=== PATIENT | female | born 1950 | race Caucasian/White ===

== ENCOUNTER 2025-06-07 06:38 | Inpatient (IN) | payer MEDICARE, OTHER ==
[~2025-06-07] VITALS: Ht 152.4 cm; Wt 93.6 kg
[2025-06-07] MEDS ORDERED: LIDOCAINE 2%-EPI 1:100,000 30 ML VIAL ONE (06:54)
[2025-06-07] MEDS ORDERED: GENTAMICIN 80 MG/2 ML VIAL ONE (06:54)
[2025-06-07] MEDS ORDERED: POLYMYXIN B SULFATE 500,000 UNITS ONE (06:54)
[2025-06-07] MEDS ORDERED: ANESTHESIA TRAY IN PYXIS 1 EA TRAY MC ONE (06:54)
[2025-06-07] MEDS ORDERED: dexaMETHasone SOD PHOSPHATE 1 ML ONE (06:55)
[2025-06-07] MEDS ORDERED: CEFAZOLIN 1 GM ONE (06:55)
[2025-06-07] MEDS ORDERED: VANCOMYCIN 1 GM VIAL ONE (06:55)
[2025-06-07] MEDS ORDERED: KETAMINE HCL (500MG/10ML) 50 MG/ML VIAL ONE (07:17)
[2025-06-07] MEDS ORDERED: FENTANYL PF 100MCG/2ML AMPUL ONE (07:17)
[2025-06-07] MEDS ORDERED: MIDAZOLAM HCL 2 MG/2ML VIAL ONE (07:17)
[2025-06-07] MEDS ORDERED: OXYMETAZOLINE HCL NASAL SPRAY 30 ML BOTTLE NS ONE (07:18)
[2025-06-07] MEDS ORDERED: ROCURONIUM BROMIDE 50 MG/5 ML ONE ×2 (07:18→09:36)
[2025-06-07] MEDS ORDERED: FAMOTIDINE/PF INJ 20 MG/2 ML VIAL IV ONE (07:18)
[2025-06-07] MEDS ORDERED: LIDOCAINE 2% JEL UROJET 10 ML MM ONE (07:49)
[2025-06-07] MEDS ORDERED: BUPIVACAINE 0.5 % PF 150 MG/30 ML VIAL ONE (07:49)
[2025-06-07] MEDS ORDERED: Magnesium 1 GM/2 ML VIAL ONE (08:21)
[2025-06-07] MEDS ORDERED: LABETALOL HCL IV 100MG VIAL ONE ×2 (08:27→09:34)
[2025-06-07] MEDS ORDERED: ONDANSETRON HCL/PF 4 MG/2 ML VIAL IVP PRN ×2 (09:30→16:00)
[2025-06-07] MEDS ORDERED: HYDROMORPHONE 1 MG/1 ML DISP.SYRIN IV PRN ×2 (09:30→12:00)
[2025-06-07] MEDS ORDERED: KETOROLAC TROMETHAMINE INJ 30 MG/ML VIAL IV PRN (09:30)
[2025-06-07] MEDS ORDERED: SUGAMMADEX SODIUM 200 MG/2 ML VIAL IV ONE (09:34)
[2025-06-07] MEDS ORDERED: ONDANSETRON HCL/PF 4 MG/2 ML VIAL IV PRN (12:00)
[2025-06-07] MEDS ORDERED: IV NS 0.9% 1,000 ML IV PRN (12:00)
[2025-06-07] MEDS ORDERED: ACETAMINOPHEN 325 MG TABLET PO PRN ×2 (12:00→16:00)
[2025-06-07] MEDS ORDERED: CHLORHEXIDINE GLUCONATE 15 ML UDC MM SCH (13:00)
[2025-06-07] MEDS: IV NS 0.9% 1,000 ML IV PRN (13:25)
[2025-06-07] MEDS: TRAMADOL HCL 50 MG TABLET PO SCH (13:27)
[2025-06-07] MEDS ORDERED: VALS1TAB6 PO (15:54)
[2025-06-07 16:00] VITALS: BP 126/82; TEMP 97.9; O2SAT 100
[2025-06-07] MEDS ORDERED: MAGNESIUM HYDROXIDE 30 ML UDC PO PRN (16:00)
[2025-06-07] MEDS ORDERED: MAG HYDROX/AL HYDROX/SIMETH 30 ML UDC PO PRN (16:00)
[2025-06-07 20:00] VITALS: BP 138/63; TEMP 98.2; O2SAT 97
[2025-06-07] MEDS ORDERED: TRAMADOL HCL 50 MG TABLET PO PRN (20:00)
[2025-06-07] MEDS: VANCOMYCIN 1 GM in IV D5W 250ml IV SCH (20:45)
[2025-06-08 07:23] LABS: PLATELET COUNT (AUTO) 228 K/uL (150-450); RED BLOOD CELL COUNT(AUTO) 4.57 MIL/uL (4.0-5.2); RED CELL DISTRIBUTION WIDTH 14.1 % (11.5-15.0); WHITE BLOOD COUNT (AUTO) 9.2 K/uL (4.3-11.0)
[2025-06-08] MEDS: PANTOPRAZOLE 40 MG TABLET.DR PO SCH (07:39)
[2025-06-08 07:47] LABS: CALCIUM, SERUM 8.9 mg/dL (8.5-10.1); CREATININE 1.1 mg/dL (0.6-1.3); PHOSPHORUS 4.1 mg/dL (2.5-4.9); SODIUM SERUM 142.0 mmol/L (136-145); UREA NITROGEN, BLOOD 20.0 mg/dL (7-18)
[2025-06-08 08:31] VITALS: BP 129/63; TEMP 98.1; O2SAT 94
[2025-06-09] MEDS ORDERED: HYDROCHLOROTHIAZIDE 25 MG TABLET PO SCH (09:00)
[2025-06-09] MEDS ORDERED: VALSARTAN 80 MG TABLET PO SCH (09:00)
== END 2025-06-08 11:00 | disposition home or self-care (01) | DRG 141 ==
LOC: DS 06:38 → MED 12:10
PROVIDERS: ADMIT Nurse Practitioner Family; ATTEND Nurse Practitioner Family
PROC: 0NUV07Z Supplement Left Mandible with Autologous Tissue Substitute, Open Approach (ICD-10-PCS; 2025-06-07)
PROC: 0N5V0ZZ Destruction of Left Mandible, Open Approach (ICD-10-PCS; 2025-06-07)
PROC: 0WB30ZZ Excision of Oral Cavity and Throat, Open Approach (ICD-10-PCS; 2025-06-07)
PROC: 0NUV0JZ Supplement Left Mandible with Synthetic Substitute, Open Approach (ICD-10-PCS; 2025-06-07)
PROC: 0NSV04Z Reposition Left Mandible with Internal Fixation Device, Open Approach (ICD-10-PCS; principal; 2025-06-07 07:30)
DX: S02.69XB Fracture of mandible of other specified site, initial encounter for open fracture (principal); Z68.41 Body mass index [BMI] 40.0-44.9, adult; M27.2 Inflammatory conditions of jaws; I10 Essential (primary) hypertension; E66.9 Obesity, unspecified; D16.5 Benign neoplasm of lower jaw bone; M84.9 Disorder of continuity of bone, unspecified; K13.79 Other lesions of oral mucosa; M27.49 Other cysts of jaw; L98.8 Other specified disorders of the skin and subcutaneous tissue; X58.XXXA Exposure to other specified factors, initial encounter; Y93.9 Activity, unspecified; Y92.009 Unspecified place in unspecified non-institutional (private) residence as the place of occurrence of the external cause
CPT/HCPCS: 36415; 80048-TC; 83735-TC; 84100-TC; 85025-TC; 88305-TC; 88311-TC; A4223; A4338; C1713; C1781; G0378; J0330; J0690; J1100; J1308; J1580; J2250; J2704; J3010; J3373; J3475; J3490; J7030; J7060